=== PATIENT | male | born 1990 | race Caucasian/White ===

== ENCOUNTER 2023-07-28 09:50 | Emergency (ER) | payer OTHER ==
--- NOTE | 2023-07-28 09:55 | ERPHSYRPT ---
- History of Present Illness Time Seen by Provider: 07/28/23 09:55 Historian: patient, EMS Exam Limitations: no limitations Physician History: This is a 33-year-old white male patient who has been off his Lexapro for quite some time and recently traveled by plane, which she does not like to do, and has anxiety every day at work as well and presents with intermittent left lateral chest wall, localized achiness with intermittent sharp stabbing symptoms. Today, the above symptoms, which are also nonradiating, became more constant and the sharp stabbing pain more intense. Patient has never been diagnosed with coronary artery disease. Patient was brought into the hospital by the [employer] machine operator helper service. Patient received 4 baby aspirin prior to arrival to the emergency department. I did immediately review the EKG strip that was performed by the paramedics. There was no acute findings on that EKG strip based on my interpretation. Patient has not had a fever. He does not complain of shortness of breath. He has not had a cough. He denies nausea vomiting or diarrhea symptoms. Timing/Duration: today (Symptoms worse today), week(s) (2), worse (Today) Location: other (Left anterior lateral) Chest Pain Radiation: no radiation ( chest wall) Severity of Pain-Max: moderate Severity of Pain-Current: mild (To moderate) Modifying Factors: Improves With: nothing Associated Symptoms: denies symptoms Prior Chest Pain/Cardiac Workup: no prior chest pain, no prior cardiac workup Nitro Today/Relief: no nitro taken today Aspirin Treatment Today: 81 mg x 4, provided by EMS Allergies/Adverse Reactions: No Known Drug Allergies Allergy (Verified 07/28/23 09:57) Home Medications: Escitalopram Oxalate [Lexapro] 1 tab PO DAILY 07/28/23 [History] Travel Risk - International Travel Have you traveled outside of the country in past 3 weeks: No - Coronavirus Screening Are you exhibiting any of the following symptoms?: No Close contact with a COVID-19 positive Pt in past 14-21 Days: No - Review of Systems Constitutional: No Symptoms Eyes: No Symptoms Ears, Nose, & Throat: No Symptoms Respiratory: No Symptoms Cardiac: Chest Pain Abdominal/Gastrointestinal: No Symptoms Genitourinary Symptoms: No Symptoms Musculoskeletal: No Symptoms Skin: No Symptoms Neurological: No Symptoms Psychological: Anxiety Endocrine: No Symptoms Hematologic/Lymphatic: No Symptoms Immunological/Allergic: No Symptoms All Other Systems: Reviewed and Negative - Past Medical History Pertinent Past Medical History: Yes - Past Surgical History Past Surgical History: No - Nursing Vital Signs Nursing Vital Signs: Initial Vital Signs Temperature 97.6 F 07/28/23 09:58 Pulse Rate 71 07/28/23 09:58 Respiratory Rate 15 07/28/23 09:58 Blood Pressure 125/91 07/28/23 09:58 O2 Sat by Pulse Oximetry 100 07/28/23 09:58 Pain Scale Pain Intensity 2 - Physical Exam General Appearance: no apparent distress, alert, anxiety Eye Exam: PERRL/EOMI, eyes nml inspection Ears, Nose, Throat Exam: normal ENT inspection, moist mucous membranes Neck Exam: normal inspection, non-tender, supple, full range of motion Respiratory Exam: normal breath sounds, chest tenderness (Clysed, nonradiating left anterior lateral chest wall), lungs clear, airway intact, No respiratory distress Cardiovascular Exam: regular rate/rhythm, normal heart sounds, normal peripheral pulses Gastrointestinal/Abdomen Exam: soft, normal bowel sounds, No tenderness Rectal Exam: not done Back Exam: normal inspection, normal range of motion, No CVA tenderness, No vertebral tenderness Extremity Exam: normal inspection, normal range of motion, pelvis stable Neurologic Exam: alert, oriented x 3, cooperative, city distribution clerk II-XII nml as tested, normal mood/affect, nml cerebellar function, nml station & gait, sensation nml Skin Exam: normal color, warm, dry Lymphatic Exam: No adenopathy SpO2 Interpretation: normal O2 Delivery: Room Air - Course Nursing assessment & vital signs reviewed: Yes EKG Interpreted by Me: RATE (76), Sinus Rhythm, NORMAL AXIS, NORMAL INTERVALS, NORMAL QRS, NORMAL ST-T, Other (No acute ischemic changes on today's twelve-lead EKG.) Ordered Tests: Active Orders 24 hr Category Date Time Status Technical Program Manager STAT Care 07/28/23 09:56 Active EKG-ER Only STAT Care 07/28/23 09:55 Active IV Insertion STAT Care 07/28/23 09:55 Active Pulse Oximetry (ED) STAT Care 07/28/23 09:55 Active CHEST 1 VIEW (PORTABLE) Stat Exams 07/28/23 09:55 Completed CBC W DIFF Stat Lab 07/28/23 Completed CMP Stat Lab 07/28/23 Completed D-DIMER QUANTITATIVE Stat Lab 07/28/23 09:50 Completed PROTIME WITH INR Stat Lab 07/28/23 Completed TROPONIN Q4H Lab 07/28/23 Completed TROPONIN Q4H Lab 07/28/23 14:00 Ordered TROPONIN Q4H Lab 07/28/23 18:00 Ordered Medication Summary Discontinued Medications Generic Name Dose Route Start Last Admin Trade Name Freq PRN Reason Stop Dose Admin Lorazepam 1 mg 07/28/23 10:17 07/28/23 10:34 Lorazepam 2 Mg/1 Ml 2 Mg Vial IV 07/28/23 10:18 1 mg STAT ONE Administration Lorazepam Confirm 07/28/23 10:32 Lorazepam 2 Mg/1 Ml 2 Mg Vial Administered 07/28/23 10:33 Dose 2 mg .ROUTE .STK-MED ONE Ondansetron HCl Confirm 07/28/23 10:32 Ondansetron Hcl 4 Mg/2 Ml Vial Administered 07/28/23 10:33 Dose 4 mg .ROUTE .STK-MED ONE Ondansetron HCl 4 mg 07/28/23 11:03 07/28/23 10:15 Ondansetron Hcl 4 Mg/2 Ml Vial IV 07/28/23 11:04 4 mg STAT ONE Administration Lab/Rad Data: Laboratory Result Diagrams 07/28/23 Unknown 07/28/23 Unknown Laboratory Results 07/28/23 07/28/23 07/28/23 Range/Units Unknown Unknown Unknown WBC (4.0-10.5) x10^3/uL RBC (4.1-5.6) x10^6/uL Hgb (12.5-18.0) g/dL Hct (42-50) % MCV (78-100) fL MCH (26-32) pg MCHC (32-36) g/dL RDW (11.5-14.0) % Plt Count (150-450) x10^3/uL MPV (7.5-11.0) fL Gran % (36.0-66.0) % Immature Gran % (Auto) (0.00-0.4) % Nucleat RBC Rel Count (0.00-0.1) % Eos # (Auto) (0-0.5) x10^3/uL Immature Gran # (Auto) (0.00-0.03) x10^3u/L Absolute Lymphs (auto) (1.0-4.6) x10^3/uL Absolute Monos (auto) (0.0-1.3) x10^3/uL Absolute Nucleated RBC (0.00-0.01) x10^3u/L Lymphocytes % (24.0-44.0) % Monocytes % (0.0-12.0) % Eosinophils % (0.00-5.0) % Basophils % (0.0-0.4) % Absolute Granulocytes (1.4-6.9) x10^3/uL Basophils # (0-0.4) x10^3/uL PT 10.3 (9.4-12.5) SECONDS INR 0.94 (0.8-3.0) D-Dimer (0.0-0.50) mg/L Sodium 136 L (137-145) mmol/L Potassium 3.6 (3.5-5.1) mmol/L Chloride 102 (98-107) mmol/L Carbon Dioxide 22 (22-30) mmol/L Anion Gap 15.4 H (5-15) MEQ/L BUN 18 (9-20) mg/dL Creatinine 0.84 (0.66-1.25) mg/dL Estimated GFR 117.4 ML/MIN Glucose 127 H (74-106) mg/dL Calcium 9.8 (8.4-10.2) mg/dL Total Bilirubin 0.60 (0.2-1.3) mg/dL AST 35 (17-59) U/L ALT 25 (0-50) U/L Alkaline Phosphatase 60 (38-126) U/L Troponin I < 0.012 (0.000-0.034) ng/mL Serum Total Protein 7.7 (6.3-8.2) g/dL Albumin 4.9 (3.5-5.0) g/dL 07/28/23 07/28/23 Range/Units Unknown 09:50 WBC 6.0 (4.0-10.5) x10^3/uL RBC 4.78 (4.1-5.6) x10^6/uL Hgb 13.6 (12.5-18.0) g/dL Hct 40.7 L (42-50) % MCV 85.1 (78-100) fL MCH 28.5 (26-32) pg MCHC 33.4 (32-36) g/dL RDW 12.0 (11.5-14.0) % Plt Count 201 (150-450) x10^3/uL MPV 10.9 (7.5-11.0) fL Gran % 71.5 H (36.0-66.0) % Immature Gran % (Auto) 0.5 H (0.00-0.4) % Nucleat RBC Rel Count 0.0 (0.00-0.1) % Eos # (Auto) 0.05 (0-0.5) x10^3/uL Immature Gran # (Auto) 0.03 (0.00-0.03) x10^3u/L Absolute Lymphs (auto) 1.23 (1.0-4.6) x10^3/uL Absolute Monos (auto) 0.37 (0.0-1.3) x10^3/uL Absolute Nucleated RBC 0.00 (0.00-0.01) x10^3u/L Lymphocytes % 20.5 L (24.0-44.0) % Monocytes % 6.2 (0.0-12.0) % Eosinophils % 0.8 (0.00-5.0) % Basophils % 0.5 (0.0-0.4) % Absolute Granulocytes 4.29 (1.4-6.9) x10^3/uL Basophils # 0.03 (0-0.4) x10^3/uL PT (9.4-12.5) SECONDS INR (0.8-3.0) D-Dimer < 0.19 (0.0-0.50) mg/L Sodium (137-145) mmol/L Potassium (3.5-5.1) mmol/L Chloride (98-107) mmol/L Carbon Dioxide (22-30) mmol/L Anion Gap (5-15) MEQ/L BUN (9-20) mg/dL Creatinine (0.66-1.25) mg/dL Estimated GFR ML/MIN Glucose (74-106) mg/dL Calcium (8.4-10.2) mg/dL Total Bilirubin (0.2-1.3) mg/dL AST (17-59) U/L ALT (0-50) U/L Alkaline Phosphatase (38-126) U/L Troponin I (0.000-0.034) ng/mL Serum Total Protein (6.3-8.2) g/dL Albumin (3.5-5.0) g/dL - Progress Progress: improved, re-examined Air Movement: good Progress Note: 07/28/23 10:23 This patient's medical issue is 1 of moderate complexity. The level of complexity and the workup performed is based on review of the patient's past medical history, review the patient's medication list, review of the patient's drug allergy list, history of present illness and physical findings on examination. The workup in this patient includes placement of intravenous line, CBC, CMP, D-dimer, BNP, troponin level, twelve-lead EKG and chest x-ray. Blake wilburn is refusing narcotic medication but does request something for his anxiety. 07/28/23 11:01 The chest x-ray was interpreted by the radiologist and I reviewed the impression. The impression states no acute cardiopulmonary process. 07/28/23 11:54 I interpreted the patient's laboratory data results. Patient does not have an acute, emergent medical issue at this time. Blood Culture(s) Obtained: No Antibiotics given: No Counseled pt/family regarding: lab results, diagnosis, need for follow-up, rad results Medical Desision Making - Independent Historian Additional History obtained from: Insurance Customer Service Specialist/EMT - Diagnostic Testing Diagnostic test were ordered, analyzed, and reviewed by me: Yes Radiological Interpretation: Reviewed by me, Teleradiologist Report - Risk of complications Minimal Risk: Minimal risk of morbidity - Departure Departure Disposition: Home Clinical Impression: Nonspecific chest pain, Anxiety Condition: Stable Critical Care Time: No Referrals: EDUARDA FRANKLIN MD [Primary Care Provider] - Follow up/PCP as directed Additional Instructions: Restart your anxiety medication. Call your primary care provider today, 07/28/2023, to make arranges for further evaluation management and a follow-up appointment.
[2023-07-28 10:03] VITALS: TEMP 97.6
[2023-07-28] MEDS: Zofran 4 MG/2 ML VIAL IV ONE (10:15)
--- NOTE | 2023-07-28 10:17 | XRAY ---
Indication: Chest pain. Comparison: None Portable chest demonstrates normal heart, lungs, and bony thorax.
[2023-07-28] MEDS ORDERED: Ativan 2 MG/1 ML VIAL ONE (10:32)
[2023-07-28] MEDS ORDERED: Zofran 4 MG/2 ML VIAL ONE (10:32)
[2023-07-28] MEDS: Ativan 2 MG/1 ML VIAL IV ONE (10:34)
[2023-07-28 11:10] LABS: Absolute Neutrophil Ct (ANC) 4.29 x10^3/uL (1.4-6.9); BASOPHIL % 0.5 % (0.0-0.4); Basophil (Absolute #) 0.03 x10^3/uL (0-0.4); Eosinophil % 0.8 % (0.00-5.0); Eosinophil (Absolute #) 0.05 x10^3/uL (0-0.5); Hematocrit 40.7 % (42-50); Hemoglobin 13.6 g/dL (12.5-18.0); IMMATURE GRAN # 0.03 x10^3u/L (0.00-0.03); IMMATURE GRAN % 0.5 % (0.00-0.4); Lymphocyte (Absolute #) 1.23 x10^3/uL (1.0-4.6); Lymphocytes % 20.5 % (24.0-44.0); Mean Cell Volume 85.1 fL (78-100); Mean Corpuscular Hemoglobin 28.5 pg (26-32); Mean Corpuscular Hgb Concent. 33.4 g/dL (32-36); Mean Platelet Volume 10.9 fL (7.5-11.0); Monocyte (Absolute #) 0.37 x10^3/uL (0.0-1.3); Monocytes % 6.2 % (0.0-12.0); Neutrophil % 71.5 % (36.0-66.0); Platelet Count 201 x10^3/uL (150-450); Red Blood Count 4.78 x10^6/uL (4.1-5.6)
[2023-07-28 11:19] LABS: INR 0.94 (0.8-3.0); PROTIME 10.3 SECONDS (9.4-12.5)
[2023-07-28 11:21] LABS: ALBUMIN 4.9 g/dL (3.5-5.0); ANION GAP 15.4 MEQ/L (5-15); BILIRUBIN,TOTAL 0.6 mg/dL (0.2-1.3); Calcium 9.8 mg/dL (8.4-10.2); Creatinine 1 0.84 mg/dL (0.66-1.25); EST GLOMERULAR FILTRATION RATE 117.4 ML/MIN; Potassium 3.6 mmol/L (3.5-5.1); Total Protein 7.7 g/dL (6.3-8.2)
[2023-07-28 12:05] VITALS: O2SAT 98
[2023-07-28 13:28] VITALS: BP 125/90; PULSE 75; RESP 19
--- NOTE | 2023-07-29 15:06 | ECHO ---
DATE OF PROCEDURE: 07/28/2023 CLINICAL INFORMATION: Chest pain and evaluation for pericarditis. The M-mode 2D, and Doppler echocardiogram including color flow Doppler shows the left ventricle is normal in size. There is moderate hypertrophy of the interventricular septum. There is normal contractility of the left ventricle. The ejection fraction is calculated to be 56%. The right ventricle is normal. The left atrium is normal. The interatrial septum is intact. The right atrium is normal. The aortic valve opens well. There is mitral valve leaflet thickening associated with mild mitral regurgitation. There is mild tricuspid regurgitation. The right ventricular systolic pressure is calculated to be 33 mm of Mercury. The pulmonic valve is not well visualized. The aortic root is normal. There is no pericardial effusion present. IMPRESSION: 1) NORMAL CONTRACTILITY OF THE LEFT VENTRICLE. 2) MODERATE ASYMMETRIC LEFT VENTRICULAR HYPERTROPHY INVOLVING THE SEPTUM. 3) NO EVIDENCE OF LEFT VENTRICULAR OUTFLOW TRACT OBSTRUCTION IS NOTED. 4) MILD MITRAL REGURGITATION. 5) MILD TRICUSPID REGURGITATION. 6) MILD PULMONARY HYPERTENSION.
== END 2023-07-28 13:47 | disposition home or self-care (01) ==
LOC: ED 09:50
DX: F41.9 Anxiety disorder, unspecified (principal); R07.9 Chest pain, unspecified; Z79.899 Other long term (current) drug therapy
CPT/HCPCS: 36000; 36415; 71045; 80053; 84484; 85025; 85379; 85610; 93005; 93041; 93306; 94760; 96374; 96375; 99284; J2060; J2405